=== PATIENT | female | born 1995 | race Asian ===

== ENCOUNTER 2023-08-27 11:03 | Emergency (ER) | payer OTHER, SELFPAY ==
[2023-08-27 11:32] VITALS: BP 112/62; PULSE 85; RESP 15; TEMP 36.4; O2SAT 99
--- NOTE | 2023-08-27 13:00 | ED_ITS ---
HPI - Female Genitourinary General Chief complaint: Urogenital-Female Stated complaint: discharge problem Time Seen by Provider: 08/27/23 12:53 History of Present Illness HPI Narrative: patient is a 28-year-old female who presents ER with vaginal discharge. Began over last couple of weeks. Similar to discharge she had earlier this year that was cared for with metronidazole. She denies being sexually active and is not concerned for sexually transmitted infections. No burning urination. No pelvic pain. 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 She went to her school clinic the 1st time this happened. Related Data Allergies Allergy/AdvReac Type Severity Reaction Status Date / Time No Known Allergies Allergy Verified 08/27/23 12:41 Review of Systems Constitutional: Constitutional: Reports no additional constitutional complaints Genitourinary: Genitourinary: Denies abnormal vaginal bleeding, Denies dysuria, Denies pelvic pain and Reports vaginal discharge PMFSH Past Medical History Medical History (Updated 08/27/23 @ 13:03 by Yemi Sherman MD) Healthy female adult Exam Narrative: GENERAL: Well-appearing, well-nourished, and in no acute distress. HEAD: Normocephalic, atraumatic. ENT: Mucous membranes moist. EXTREMITIES: Normal range of motion. No edema. SKIN: Warm, dry, no rash. NEURO: Alert and oriented x3. PSYCH: Normal mood and affect. Course Course Emergency Course: patient declines pelvic exam. Will treat with metronidazole and give follow-up with gynecology. Vital Signs Vital signs: Vital Signs Temperature 97.6 F 08/27/23 11:32 Pulse Rate 85 08/27/23 11:32 Respiratory Rate 15 08/27/23 11:32 Blood Pressure 112/62 08/27/23 11:32 Pulse Oximetry 99 08/27/23 11:32 Oxygen Delivery Room Air 08/27/23 11:32 Temperature 97.6 F 08/27/23 11:32 Pulse Rate 85 08/27/23 11:32 Respiratory Rate 15 08/27/23 11:32 Blood Pressure 112/62 08/27/23 11:32 Pulse Oximetry 99 08/27/23 11:32 Oxygen Delivery Room Air 08/27/23 11:32 Discharge Plan Discharge Clinical Impression: Bacterial vaginosis Patient Disposition: Home, Self-Care Condition: Stable Instructions: Antibiotic Form, Bacterial Vaginosis (ED) Additional Instructions: Return ER fever over 100.4? F, you have pain in your pelvis, or have additional concerns. Prescriptions: New metronidazole 500 mg tablet 500 mg PO Q12H Qty: 14 0RF Follow-up/Referrals: PHYSICIAN,COMMERCIAL TECHNICIAN [Primary Care Provider] - Tevin Carmen MD [Physician] - 1 Week
== END 2023-08-27 13:37 | disposition home or self-care (01) ==
LOC: ANHED 13:25
PROVIDERS: Emergency Provider Emergency Medicine
DX: N76.0 Acute vaginitis (principal)
CPT/HCPCS: 99283